=== PATIENT | female | born 1980 | race Caucasian/White ===

== ENCOUNTER 2020-09-27 17:39 | Emergency (ER) | payer SELFPAY ==
--- NOTE | 2020-09-27 17:43 | ECG_ITS ---
Test Reason : SVT Blood Pressure : / mmHG Vent. Rate : 216 BPM Atrial Rate : 215 BPM P-R Int : 000 ms QRS Dur : 068 ms QT Int : 198 ms P-R-T Axes : 000 005 103 degrees QTc Int : [address] depression, consider subendocardial injury Abnormal QRS-T angle, consider primary T wave abnormality Abnormal ECG Supraventricular tachycardia is new Referred By: Ziyad Vera Electronically Signed By:GALEN ANDERSON MD
--- NOTE | 2020-09-27 17:52 | ECG_ITS ---
Test Reason : SVT Blood Pressure : / mmHG Vent. Rate : 128 BPM Atrial Rate : 128 BPM P-R Int : 158 ms QRS Dur : 080 ms QT Int : 304 ms P-R-T Axes : 051 007 033 degrees QTc Int : 443 ms Sinus tachycardia Nonspecific ST abnormality Abnormal ECG Heart rate has decreased Sinus tachycardia has replaced Supraventricular tachycardia Referred By: Ziyad Vera Electronically Signed By:GALEN ANDERSON MD
--- NOTE | 2020-09-27 17:53 | ED.ARRPALP ---
HPI - Arrhythmia/Palpitations General Chief Complaint: Arrhythmia/Palpitations Stated Complaint: Tachycardia Time Seen by Provider: 09/27/20 17:45 Source: patient Mode of arrival: ambulatory Limitations: no limitations History of Present Illness HPI narrative: patient's history of PSVT recurrent episode last episode was in October supposed to be on metoprolol but patient is not taking it today around 04:00 o'clock she noticed heart was beating fast she took 50 mg metoprolol 2 times since then and still continued to have palpitations when she came in the ER heart rate was in 220 range patient was feeling slightly lightheaded and chest tightness complaint: rapid heart beat Onset (ago): hour(s) (2) Duration: constant Severity: severe Context: occurred during rest Arrhythmia history: SVT Associated symptoms: chest pain and near-syncope Treatments prior to arrival: beta-harris Related Data Previous Rx's Medication Instructions Recorded metoprolol tartrate [Lopressor] 50 mg PO BID #60 tab 09/27/20 Allergies Allergy/AdvReac Type Severity Reaction Status Date / Time No Known Allergies Allergy Unverified 08/15/20 16:51 [No Known Allergies*] Review of Systems Review of Systems: REVIEW OF SYSTEMS: Pertinent positives and negatives are stated above in the history. GEN: no fevers, chills, fatigue HEENT: no nasal congestion, sore throat, ear pain NEURO: no headache, dizziness, focal weakness PULM: no cough, shortness of breath CV: no LE edema ABD: no abdominal pain, nausea, vomiting, diarrhea : no dysuria, urgency, frequency SKIN: no rash ROS otherwise negative x 10 PMFSH Past Medical History Medical History SVT (supraventricular tachycardia) Social History Social History Alcohol intake: never Smoking Status: Never smoker Advance Directives: No Advance Directives Information Provided: No Physical Exam Vital Signs: Vital Signs: Vital Signs Temp Pulse Resp BP Pulse Ox 09/27/20 19:44 103 H 156/99 H 09/27/20 18:57 105 H 16 156/99 H 98 09/27/20 17:57 98.3 F 216 H 22 H 146/93 H 97 Body Mass Index 58.1 Appearance: Alert. Oriented X3. No acute distress. Eyes: Pupils equal, round and reactive to light. ENT: Pharynx normal. Neck: Normal inspection. Neck supple. CVS: sinus tachycardia with heart rate to 220. Pulses normal. Respiratory: No respiratory distress. Breath sounds normal. Abdomen: Soft and nontender. Skin: Skin warm and dry. Normal skin color. Normal skin turgor. Extremities: No lower extremity edema. Good range of movement Neuro: Oriented X 3. No motor deficit. No sensory deficit. Course Reevaluation(s) Reevaluation #1: patient with SVT heart rate to 20 beats per minute , no response to Adenocard 6 mg will give her 12 mg now Time: 17:44 Reevaluation #2: Patient still SVT heart rate to 210 range responded to 12 mg of adenosine, surveillance monitor showing sinus tachycardia 120 Time: 17:53 Reevaluation #3: patient feeling better now ambulatory in the ER heart rate 105 will discharge patient home on Lopressor 25 mg twice daily and follow-up with cardiology Time: 19:23 MDM - Arrhythmia/Palpitations Lab Data Result diagrams: 09/27/20 18:07 09/27/20 18:07 Labs: Lab Results 09/27/20 09/27/20 09/27/20 Range/Units 18:07 18:07 18:07 WBC 9.3 (4.8-10.8) X10*3/uL RBC 3.91 L (4.20-5.50) X10*6/uL Hgb 13.2 (12.0-16.0) g/dl Hct 39.9 (37-47) % MCV 102.0 H (80-98) fL MCH 33.8 H (27.0-33.0) pg MCHC 33.1 (31.0-35.0) g/dl RDW 13.3 (11.0-16.0) % Plt Count 192 (160-400) X10*3/uL MPV 9.1 L (9.4-12.3) fL Immature Gran % (Auto) 0.4 (0.0-0.4) % Neut % (Auto) 80.1 H (45-73) % Lymph % (Auto) 12.7 L (20-40) % [place] % (Auto) 5.5 (2-11) % Eos % (Auto) 1.0 (0-4) % Baso % (Auto) 0.3 (0-2) % Lymph # (Auto) 1.2 (1.2-4.9) X10*3/uL [place] # (Auto) 0.5 (0.1-1.2) X10*3/uL Eos # (Auto) 0.1 (0.0-0.4) X10*3/uL Baso # (Auto) 0.0 (0.0-0.2) X10*3/uL Abs Immat Gran (auto) 0.04 H (0.00-0.03) X10*3/uL Absolute Neuts (auto) 7.4 (2.0-8.3) X10*3/uL Absolute Nucleated RBC 0.000 (0.0-0.012) X10*3/uL Nucleated RBC % (auto) 0.0 (0.0-0.2) /100WBC Sodium 138 (135-145) mmol/L Potassium 3.7 (3.3-5.1) mmol/l Chloride 99 (96-108) mmol/L Carbon Dioxide 27 (22-29) mmol/L Anion Gap 16 (12-20) BUN 8 L (9-16) mg/dL Creatinine 0.67 (0.5-1.4) mg/dL Estim Creat Clear Calc 179.5 Estimated GFR > 60 Random Glucose 118 H (60-115) mg/dL Calcium 8.1 L (8.4-10.2) mg/dL Troponin I High Sens 10.0 (<3.5-17.0) ng/L Critical Care Time Critical Care Time Critical Care Time: Yes Total Critical Care Time: 35 Attestation: critical time 35 minutes Discharge Plan Discharge Clinical Impression: Supraventricular tachycardia Patient Disposition: Home, Self-Care Instructions: Supraventricular Tachycardia (ED) Additional Instructions: Start Taking Lopressor 50 mg twice daily and follow up with epidemiology intern. Report to the ER if more episodes of palpitation Prescriptions: New metoprolol tartrate [Lopressor] 50 mg tablet 50 mg PO BID Qty: 60 RF: 1 Referrals: Anoop Alvarez MD [Physician] - 1 week Interventions: ED Discharge Assessment Last Done: 09/27/20 19:51 Discharge Date/Time: 09/27/20 19:51
[2020-09-27 17:57] VITALS: BP 146/93; PULSE 216; RESP 22; TEMP 36.8; O2SAT 97; BMI 58.1
[2020-09-27] MEDS: 0.9 % Sodium Chloride 1,000 ML 999 ML IVCONT (18:03)
[2020-09-27 18:12] LABS: MANUAL DIFF FLAG NO
[2020-09-27 18:14] LABS: Basophils Percent Auto 0.3 % (0-2); Eosinophils Absolute Auto 0.1 X10*3/uL (0.0-0.4); Hematocrit 39.9 % (37-47); Hemoglobin 13.2 g/dl (12.0-16.0); Imm Gran Abs Auto 0.04 X10*3/uL (0.00-0.03); Imm Gran Pct Auto 0.4 % (0.0-0.4); Lymphocytes Absolute Auto 1.2 X10*3/uL (1.2-4.9); Lymphocytes Percent Auto 12.7 % (20-40); Mean Corpuscular HGB Conc 33.1 g/dl (31.0-35.0); Mean Corpuscular Hemoglobin 33.8 pg (27.0-33.0); Mean Platelet Volume 9.1 fL (9.4-12.3); Monocytes Absolute Auto 0.5 X10*3/uL (0.1-1.2); Monocytes Percent Auto 5.5 % (2-11); Neutrophils Absolute Auto 7.4 X10*3/uL (2.0-8.3); Neutrophils Percent Auto 80.1 % (45-73); Platelet Count 192 X10*3/uL (160-400); Red Blood Count 3.91 X10*6/uL (4.20-5.50); Red Cell Distribution Width 13.3 % (11.0-16.0); White Blood Count 9.3 X10*3/uL (4.8-10.8)
[2020-09-27 18:42] LABS: Anion Gap 16 (12-20); Blood Urea Nitrogen 8 mg/dL (9-16); Calcium 8.1 mg/dL (8.4-10.2); Carbon Dioxide 27 mmol/L (22-29); Chloride 99 mmol/L (96-108); Creatinine Clr Calc Pharmacy 179.5; Estimated Glomerular Filt Rate > 60; Glucose Random 118 mg/dL (60-115); Potassium 3.7 mmol/l (3.3-5.1); Sodium 138 mmol/L (135-145)
[2020-09-27 18:57] VITALS: BP 156/99; PULSE 105; RESP 16; O2SAT 98
[2020-09-27 19:14] VITALS: PULSE 106
[2020-09-27 19:44] VITALS: BP 156/99; PULSE 103
[2020-09-27] MEDS: Metoprolol Tartrate 50 MG TABLET PO (19:44)
--- NOTE | 2020-09-27 22:40 | ECG_ITS ---
Test Reason : SVT Blood Pressure : / mmHG Vent. Rate : 187 BPM Atrial Rate : 192 BPM P-R Int : 000 ms QRS Dur : 074 ms QT Int : 244 ms P-R-T Axes : 000 005 081 degrees QTc Int : 430 ms Supraventricular tachycardia Nonspecific ST abnormality Abnormal ECG When compared with ECG of 27-SEP-2020 17:52, Supraventricular tachycardia has replaced Sinus tachycardia Referred By: Ziyad Vera Electronically Signed By:GALEN ANDERSON MD
== END 2020-09-27 19:51 | disposition home or self-care (01) ==
PROVIDERS: Emergency Provider Internal Medicine
DX: I47.1 Supraventricular tachycardia (principal); Z79.899 Other long term (current) drug therapy
CPT/HCPCS: 36415; 80048; 84484; 85025; 93005; 96361; 96374; 99285; 99291; J0153

== ENCOUNTER 2020-09-27 22:39 | Emergency (ER) | payer SELFPAY ==
[2020-09-27 22:50] VITALS: BP 127/100; PULSE 192; RESP 16; TEMP 36.6; O2SAT 95; BMI 58.1
--- NOTE | 2020-09-27 22:52 | ECG_ITS ---
Test Reason : REPEAT Blood Pressure : / mmHG Vent. Rate : 096 BPM Atrial Rate : 096 BPM P-R Int : 146 ms QRS Dur : 084 ms QT Int : 364 ms P-R-T Axes : 053 -01 012 degrees QTc Int : 459 ms Sinus rhythm with Premature atrial complexes Otherwise normal ECG When compared with ECG of 27-SEP-2020 22:56, Sinus rhythm has replaced Atrial fibrillation Referred By: Ziyad Vera Electronically Signed By: GALEN ANDERSON MD MTDD
[2020-09-27 23:03] VITALS: BP 141/78; PULSE 112; PULSE 94; RESP 16; RESP 18; TEMP 36.5; O2SAT 95; O2SAT 96
[2020-09-27 23:33] VITALS: BP 103/59; PULSE 86; RESP 16; TEMP 36.5; O2SAT 94
--- NOTE | 2020-09-27 23:51 | ED.ARRPALP ---
HPI - Arrhythmia/Palpitations General Chief Complaint: Arrhythmia/Palpitations Stated Complaint: SVT Time Seen by Provider: 09/27/20 22:49 Source: patient Mode of arrival: ambulatory Limitations: no limitations History of Present Illness HPI narrative: patient with history of PSVT just seen in the ER and discharged 4 hours ago comes back for episode of tachycardia which lasted for last 1 hour on arrival patient's heart rate was 187. Patient already received 100 mg of metoprolol at home and 50 mg prior to discharge last time she received additional sent 6 mg and 12 mg to break the SVT MD complaint: rapid heart beat Onset (ago): hour(s) (1) Duration: constant Severity: moderate Context: occurred during rest Arrhythmia history: SVT Associated symptoms: other (dizziness) Treatments prior to arrival: beta-harris Related Data Previous Rx's Medication Instructions Recorded metoprolol tartrate [Lopressor] 50 mg PO BID #60 tab 09/27/20 Allergies Allergy/AdvReac Type Severity Reaction Status Date / Time No Known Allergies Allergy Unverified 08/15/20 16:51 [No Known Allergies*] Review of Systems Review of Systems: REVIEW OF SYSTEMS: Pertinent positives and negatives are stated above in the history. GEN: no fevers, chills, fatigue HEENT: no nasal congestion, sore throat, ear pain NEURO: no headache, , focal weakness PULM: no cough, shortness of breath CV: no chest pain, LE edema ABD: no abdominal pain, nausea, vomiting, diarrhea : no dysuria, urgency, frequency SKIN: no rash ROS otherwise negative x 10 PMFSH Past Medical History Medical History SVT (supraventricular tachycardia) Social History Social History Alcohol intake: never Smoking Status: Never smoker Advance Directives: No Advance Directives Information Provided: No Physical Exam Vital Signs: Vital Signs: Vital Signs Temp Pulse Pulse Resp BP Pulse Ox 09/28/20 00:56 108 H 09/27/20 23:56 98.3 F 89 18 112/66 95 09/27/20 23:33 97.7 F 86 16 103/59 L 94 09/27/20 23:03 97.7 F 94 16 141/78 H 96 09/27/20 22:50 97.9 F 192 H 16 127/100 H 95 Body Mass Index 58.1 VITAL SIGNS: Reviewed. GENERAL: Well developed, well nourished, in no acute distress. HEAD: Normocephalic/atraumatic, EYES: PERRLA No pallor/icterus noted EARS: Ext canals without abnormality NOSE: Nares patent bilateral OROPHARYNX: Oral mucosa moist no oral lesions NECK: Supple, no adenopathy LUNGS: Normal breath sounds. No adventitious sounds or accessory muscle use CARDIOVASCULAR: tachycardia with heart rate 187, Regular rate and rhythm without noted murmurs, no JVD or lower extremity edema. ABDOMEN: Soft, non-tender, non-distended with bowel sounds. No rigidity. No guarding. No palpable masses or hernias noted MUSCULOSKELETAL: No tenderness, deformities, EXTREMITIES: No cyanosis or edema. SKIN: no rashes, ulcerations, jaundice, pallor, or petechiae NEUROLOGIC: Alert and oriented x 3. Strength and sensation to light touch were grossly intact Course Reevaluation(s) Reevaluation #1: patient with PSVT came 2nd time to the ER responded to 6+ 12 mg burden was sent EKG showed PACs with heart rate of 108 Time: 22:56 Reevaluation #2: patient feeling much better now heart rate 96 cardiac monitoring showing normal sinus rhythm with PACs patient magnesium 1.5 will give extra magnesium IV also heart rate fluctuating between 95-130 will give p.o. Cardizem to 30 mg advised to follow-up with lock tender chief operator Time: 00:03 MDM - Arrhythmia/Palpitations Differential Diagnosis Differential diagnosis: Likely palpitations, anxiety, sinus tachycardia and supraventricular tachycardia Lab Data Labs: Lab Results 09/28/20 09/28/20 09/28/20 Range/Units 00:06 00:06 00:06 PT 12.2 (10.8-13.0) SEC INR 1.0 (0.9-1.1) APTT 30.2 (24.1-38.0) SEC Magnesium (1.6-2.6) mg/dL Troponin I High Sens 38.4 H D (<3.5-17.0) ng/L TSH 2.60 (0.32-4.0) mIU/mL Coronavirus (PCR) (Negative) 09/28/20 09/28/20 Range/Units 00:06 00:06 PT (10.8-13.0) SEC INR (0.9-1.1) APTT (24.1-38.0) SEC Magnesium 1.5 L (1.6-2.6) mg/dL Troponin I High Sens (<3.5-17.0) ng/L TSH (0.32-4.0) mIU/mL Coronavirus (PCR) NEGATIVE (Negative) ECG Data Attestation: I personally reviewed and interpreted this ECG as follows: Prior ECG tracings: available for review Interpretation: SVT with heart rate [address] T wave changes normal axis normal intervals impression SVT Discharge Plan Discharge Clinical Impression: Supraventricular tachycardia Patient Disposition: Home, Self-Care Additional Instructions: continue metoprolol 50 mg twice daily as prescribed and follow-up with lock tender chief operator Prescriptions: No Action metoprolol tartrate [Lopressor] 50 mg tablet 50 mg PO BID Qty: 60 RF: 1 Referrals: Anoop Alvarez MD [Physician] - 1 week
[2020-09-27 23:56] VITALS: BP 112/66; PULSE 89; RESP 18; TEMP 36.8; O2SAT 95
[2020-09-28 00:35] LABS: Magnesium 1.5 mg/dL (1.6-2.6); Prothrombin Time 12.2 SEC (10.8-13.0)
[2020-09-28 00:37] LABS: Partial Thromboplastin Time 30.2 SEC (24.1-38.0)
[2020-09-28 00:43] LABS: Troponin-I High Sensitivity 38.4 ng/L (<3.5-17.0)
[2020-09-28 00:56] VITALS: PULSE 108
[2020-09-28 01:01] VITALS: PULSE 110
[2020-09-28] MEDS: Magnesium Sulfate/H2O 2 GM/50 ML PIGGYBACK IV (01:15)
[2020-09-28 01:17] VITALS: BP 128/86; PULSE 97
[2020-09-28] MEDS: dilTIAZem HCL 30 MG TABLET PO (01:17)
[2020-09-28 01:18] LABS: SARS COV2 PCR INHOUSE NEGATIVE (Negative)
--- NOTE | 2020-09-28 01:23 | PC.NURSE ---
pt denies any chest pain. no sob, pt is resting in bed. medicated per Jan.
[2020-09-28 02:48] VITALS: BP 93/47; PULSE 103; RESP 18
== END 2020-09-28 02:55 | disposition home or self-care (01) ==
PROVIDERS: Emergency Provider Internal Medicine
DX: I47.1 Supraventricular tachycardia (principal); Z20.828 Contact with and (suspected) exposure to other viral communicable diseases; Z79.899 Other long term (current) drug therapy
CPT/HCPCS: 36415; 83735; 84443; 84484; 85610; 85730; 93005; 96365; 96375; 99284; J0153; J3475; U0003

== ENCOUNTER 2021-09-26 16:12 | Emergency (ER) | payer OTHER, SELFPAY ==
--- NOTE | ~2021-09-26 | CT_ITS ---
EXAMINATION: CT ANGIOGRAM OF THE CHEST WITH AND WITHOUT CONTRAST (CT PULMONARY ANGIOGRAM FOR PE) CLINICAL INFORMATION: Chest pain, elevated d-dimer. Rule out PE. COMPARISON: Chest radiograph done earlier today at 7:20 PM. TECHNIQUE: Prior to contrast administration, noncontrast localization images were obtained. Subsequently, multidetector volumetric imaging was performed from the thoracic inlet to below the diaphragms following the administration of 80 mL Omnipaque 350 intravenous contrast. No contrast reaction reported Sagittal, coronal, and MIP oblique sagittal reformatted images were obtained on the CT workstation, uploaded to PACS, and reviewed. This CT examination was performed using dose optimization techniques as appropriate, variously including the following: *Automated exposure control *Adjustment of mA and/or kV according to patient size (this includes techniques or standardized protocols for targeted exams where dose is matched to indication/reason for exam; i.e. extremities or head) *Use of iterative reconstruction technique Total exam dose-length product 567 mGy-cm FINDINGS: QUALITY OF STUDY/CONTRAST BOLUS: Suboptimal. PULMONARY ARTERIES: Evaluation of segmental and subsegmental pulmonary emboli is somewhat limited due to the timing of the intravenous contrast, motion and attenuation of the beam from patient body habitus. There is no evidence of central pulmonary emboli. THORACIC AORTA: No aneurysm or dissection. LUNG: There are low lung volumes with left greater than right subsegmental atelectases. Prominence of the epicardial fat pad leads to volume loss within the left lung. No focal consolidation or pleural effusion. The airways are patent. PLEURA: No pleural effusion or pneumothorax. MEDIASTINUM: Normal heart size. No pericardial effusion. Mediastinal fat proliferation with a prominent epicardial fat pad. No hilar or mediastinal lymphadenopathy. No evidence of septal bowing or right heart strain. CHEST WALL/AXILLA: Venous collaterals in the abdominal wall of uncertain etiology. No axillary or internal mammary lymphadenopathy. OSSEOUS STRUCTURES: No acute or suspicious osseous abnormality. UPPER ABDOMEN: Hepatic steatosis. No reflux of contrast into the hepatic veins to suggest elevated right heart pressures. CT/CT angio chest PE protocol IMPRESSION: Limited evaluation of segmental and subsegmental pulmonary emboli as above. No central pulmonary emboli nor signs of increased right-sided heart pressure. Low lung volumes with left greater than right subsegmental atelectasis. No focal consolidation, pleural effusion or pneumothorax. Hepatic steatosis. VTE: indeterminate
--- NOTE | ~2021-09-26 | XR_ITS ---
EXAMINATION: XR CHEST CLINICAL INFORMATION: Chest pain COMPARISON: None TECHNIQUE: Frontal view of the chest was obtained. FINDINGS: Cardiac silhouette appears prominent. Blunting of the left costophrenic angle suggests a left-sided pleural effusion. There is good aeration of the right hemithorax. No pneumothorax. XR/XR chest 1V IMPRESSION: Suspected moderate left-sided pleural effusion. This may be further evaluated with PA and lateral radiographs versus chest CT.
[2021-09-26 18:59] VITALS: BP 157/76; PULSE 87; RESP 20; TEMP 36.9; O2SAT 97; BMI 59.7
[2021-09-26 20:09] LABS: MANUAL DIFF FLAG NO
[2021-09-26 20:10] LABS: Basophils Percent Auto 0.5 % (0-2); Eosinophils Absolute Auto 0.1 X10*3/uL (0.0-0.4); Eosinophils Percent Auto 1.5 % (0-4); Hematocrit 40.7 % (37-47); Hemoglobin 13.4 g/dl (12.0-16.0); Imm Gran Abs Auto 0.09 X10*3/uL (0.00-0.03); Lymphocytes Absolute Auto 1.3 X10*3/uL (1.2-4.9); Lymphocytes Percent Auto 14.4 % (20-40); Mean Corpuscular HGB Conc 32.9 g/dl (31.0-35.0); Mean Corpuscular Hemoglobin 36.6 pg (27.0-33.0); Mean Platelet Volume 9.1 fL (9.4-12.3); Monocytes Absolute Auto 0.7 X10*3/uL (0.1-1.2); Monocytes Percent Auto 7.3 % (2-11); Neutrophils Absolute Auto 6.7 X10*3/uL (2.0-8.3); Neutrophils Percent Auto 75.3 % (45-73); Platelet Count 217 X10*3/uL (160-400); Red Blood Count 3.66 X10*6/uL (4.20-5.50); Red Cell Distribution Width 15.9 % (11.0-16.0); White Blood Count 8.9 X10*3/uL (4.8-10.8)
[2021-09-26 20:12] LABS: Mean Corpuscular Volume 111.2 fL (80-98)
--- NOTE | 2021-09-26 20:15 | ED.CHESTPAIN ---
HPI - Chest Pain General Chief Complaint: Chest Pain Stated Complaint: LOW O2 Time Seen by Provider: 09/26/21 20:15 Source: patient Mode of arrival: ambulatory Limitations: no limitations History of Present Illness HPI narrative: 41 years old female otherwise healthy came in for evaluation of left-sided chest pain. Patient was seen and evaluated at an urgent care and was advised to come to the hospital for further evaluation of left-sided chest pain, pain started about a week ago, pain is localized to the left side of chest in the mid axillary line, no radiation, pain intermittent, described as moderate 5/10, pain is triggered by movement or taking it deep breath, staying still were relieved the pain, no other associated symptoms. Patient had bronchitis a week before with a deep coughing. Related Data Previous Rx's Medication Instructions Recorded metoprolol tartrate 50 mg tablet 50 mg PO BID #60 tab 09/27/20 (Lopressor) Allergies Allergy/AdvReac Type Severity Reaction Status Date / Time No Known Allergies Allergy Unverified 08/15/20 16:51 [No Known Allergies*] Review of Systems Review of Systems: All other systems are reviewed and are negative Constitutional: Reports as per HPI and Reports no additional constitutional complaints Eyes: Reports as per HPI and Reports no additional eye complaints Reports system reviewed and no additional complaints, except as documented Cardiovascular: Reports as per HPI and Reports no additional cardiovascular complaints Respiratory: Reports as per HPI and Reports no additional respiratory complaints Gastrointestinal: Reports as per HPI and Reports no additional gastrointestinal complaints Genitourinary: Reports no additional female genitourinary complaints Musculoskeletal: Reports no additional musculoskeletal complaints Skin/Breast: Reports system reviewed and no additional complaints, except as docu Psychiatric: Reports no additional psychiatric complaints Endocrine: Reports no additional endocrine complaints Hematologic/Lymphatic: Reports no additional hematologic/lymphatic complaints Allergic/Immunologic: Reports no additional allergic/immunologic complaints Reports system reviewed and no additional complaints, except as documented and Reports Abnormal speech present COUNTS INCLUDE 234 BEDS AT THE [facility] Past Medical History Medical History SVT (supraventricular tachycardia) Social History Social History Alcohol intake: never Advance Directives: No Physical Exam Vital Signs: Vital Signs: Last Vital Signs Temp 98.4 F 09/26/21 23:49 Pulse 68 09/26/21 23:49 Resp 16 09/26/21 23:49 BP 123/90 H 09/26/21 23:49 Pulse Ox 100 09/26/21 23:49 Body Mass Index 59.7 Vital signs have been reviewed as appeared to be correct. Blood pressure normal. Heart rate normal. Respiration rate normal. Temperature normal. Oxygen saturation normal. Appearance: Alert. Oriented X3. No acute distress. Head: Normal external exam. Normocephalic. Atraumatic. No Rasmussen signs noted. No raccoon eyes noted Eyes: PERRLA. EOMI. Conjunctiva and sclera normal. Eyelids normal. ENT: TM's Normal. Pharynx normal. Uvula midline. Moist mucous membranes. No trismus noted. No drooling noted. No muffled voice noted. Neck: Normal inspection. Neck supple. FROM. No adenopathy. Thyroid Normal. No meningeal signs. No neck mass noted. CVS: Normal heart rate and rhythm. Heart sound normal. No murmurs noted. Pulses normal throughout. Respiratory: No respiratory distress. Painless inspiration. Breath sounds normal. No wheezes/rales/rhonchi noted. Chest reproducible tenderness in the mid chest at mid axillary line. No accessory muscle usage noted or decreased air movement noted. Abdomen: Soft and nontender. Bowel sounds normal in all 4 quadrants. No distention noted. No organomegaly noted. No visible injury noted. Back: No CVA tenderness. Full range of motion noted. Skin: Skin warm and dry. Normal skin color. Normal skin turgor. No rashes/lesions/lacerations noted. Extremities: No lower extremity edema. Extremities exhibit normal range of motion. Extremities nontender. Neuro: Oriented X 3. Cranial nerve exam: II-XII are grossly intact No motor deficit. No sensory deficit. Reflexes normal. Course Course Course Narrative: Assessment and plan. 41-year-old female came in for evaluation of left side chest pain, patient was sent from walk-in urgent care for being hypoxic, patient declined any recent travel, or prolonged immobilization, no lower extremity swelling or tenderness. Patient found to be at low O2 in the ED, patient with 2 L of oxygen go up to 96- 97%, patient is comfortably breathing, CTs/chest x-ray labs are unremarkable to explain patient's symptoms, patient was offered to be admitted for monitoring overnight, patient declined and has to go home patient will follow-up with her PCP. MDM - Chest Pain Medical Records Data Attestation: I reviewed the patient's medical records. Lab Data Attestation: I reviewed the patient's lab results. Result diagrams: 09/26/21 20:05 09/26/21 20:05 Labs: Lab Results 09/26/21 09/26/21 09/26/21 Range/Units 20:05 20:05 20:27 WBC 8.9 (4.8-10.8) X10*3/uL RBC 3.66 L (4.20-5.50) X10*6/uL Hgb 13.4 (12.0-16.0) g/dl Hct 40.7 (37-47) % MCV 111.2 H (80-98) fL MCH 36.6 H (27.0-33.0) pg MCHC 32.9 (31.0-35.0) g/dl RDW 15.9 (11.0-16.0) % Plt Count 217 (160-400) X10*3/uL MPV 9.1 L (9.4-12.3) fL Immature Gran % (Auto) 1.0 H (0.0-0.4) % Neut % (Auto) 75.3 H (45-73) % Lymph % (Auto) 14.4 L (20-40) % [place] % (Auto) 7.3 (2-11) % Eos % (Auto) 1.5 (0-4) % Baso % (Auto) 0.5 (0-2) % Lymph # (Auto) 1.3 (1.2-4.9) X10*3/uL [place] # (Auto) 0.7 (0.1-1.2) X10*3/uL Eos # (Auto) 0.1 (0.0-0.4) X10*3/uL Baso # (Auto) 0.0 (0.0-0.2) X10*3/uL Abs Immat Gran (auto) 0.09 H (0.00-0.03) X10*3/uL Absolute Neuts (auto) 6.7 (2.0-8.3) X10*3/uL Absolute Nucleated RBC 0.000 (0.0-0.012) X10*3/uL Nucleated RBC % (auto) 0.0 (0.0-0.2) /100WBC D-Dimer NG/ML Sodium 141 (135-145) mmol/L Potassium 3.9 (3.3-5.1) mmol/L Chloride 97 (96-108) mmol/L Carbon Dioxide 30 H (22-29) mmol/L Anion Gap 18 (12-20) BUN 4 L (9-16) mg/dL Creatinine 0.63 (0.5-1.4) mg/dL Estim Creat Clear Calc 192.4 Estimated GFR > 60 Random Glucose 111 (60-115) mg/dL Calcium 9.0 D (8.4-10.2) mg/dL Total Bilirubin 2.3 H (0.0-1.0) mg/dL Direct Bilirubin 1.1 H (0.0-0.5) mg/dL AST 51 H (5-31) U/L ALT 41 H (0-31) U/L Alkaline Phosphatase 86 (39-117) U/L Troponin I High Sens 13.9 (<3.5-17.0) ng/L Total Protein 6.0 L (6.5-8.0) g/dL Albumin 3.6 (3.5-5.0) g/dL Lipase 20 (8-78) U/L COVID-19 (CARLITA) (Negative) COVID-19 Clin Com 09/26/21 09/26/21 Range/Units 21:24 22:02 WBC (4.8-10.8) X10*3/uL RBC (4.20-5.50) X10*6/uL Hgb (12.0-16.0) g/dl Hct (37-47) % MCV (80-98) fL MCH (27.0-33.0) pg MCHC (31.0-35.0) g/dl RDW (11.0-16.0) % Plt Count (160-400) X10*3/uL MPV (9.4-12.3) fL Immature Gran % (Auto) (0.0-0.4) % Neut % (Auto) (45-73) % Lymph % (Auto) (20-40) % [place] % (Auto) (2-11) % Eos % (Auto) (0-4) % Baso % (Auto) (0-2) % Lymph # (Auto) (1.2-4.9) X10*3/uL [place] # (Auto) (0.1-1.2) X10*3/uL Eos # (Auto) (0.0-0.4) X10*3/uL Baso # (Auto) (0.0-0.2) X10*3/uL Abs Immat Gran (auto) (0.00-0.03) X10*3/uL Absolute Neuts (auto) (2.0-8.3) X10*3/uL Absolute Nucleated RBC (0.0-0.012) X10*3/uL Nucleated RBC % (auto) (0.0-0.2) /100WBC D-Dimer 492 NG/ML Sodium (135-145) mmol/L Potassium (3.3-5.1) mmol/L Chloride (96-108) mmol/L Carbon Dioxide (22-29) mmol/L Anion Gap (12-20) BUN (9-16) mg/dL Creatinine (0.5-1.4) mg/dL Estim Creat Clear Calc Estimated GFR Random Glucose (60-115) mg/dL Calcium (8.4-10.2) mg/dL Total Bilirubin (0.0-1.0) mg/dL Direct Bilirubin (0.0-0.5) mg/dL AST (5-31) U/L ALT (0-31) U/L Alkaline Phosphatase (39-117) U/L Troponin I High Sens (<3.5-17.0) ng/L Total Protein (6.5-8.0) g/dL Albumin (3.5-5.0) g/dL Lipase (8-78) U/L COVID-19 (CARLITA) Negative (Negative) COVID-19 Clin Com See Note Discharge Plan Discharge Clinical Impression: Chest pain, Hypoxia Patient Disposition: Home, Self-Care Instructions: Hypoxia (ED) Prescriptions: No Action metoprolol tartrate [Lopressor] 50 mg tablet 50 mg PO BID Qty: 60 RF: 1 Referrals: Physician,Unknown J [Primary Care Provider] - 2 days Leonid Burgos MD [Physician] - 2 days
[2021-09-26 20:31] LABS: Alanine Aminotransferase 41 U/L (0-31); Albumin Level 3.6 g/dL (3.5-5.0); Alkaline Phosphatase 86 U/L (39-117); Anion Gap 18 (12-20); Aspartate Amino Transferase 51 U/L (5-31); Bilirubin Direct 1.1 mg/dL (0.0-0.5); Bilirubin Total 2.3 mg/dL (0.0-1.0); Blood Urea Nitrogen 4 mg/dL (9-16); Carbon Dioxide 30 mmol/L (22-29); Chloride 97 mmol/L (96-108); Creatinine Clr Calc Pharmacy 192.4; Estimated Glomerular Filt Rate > 60; Glucose Random 111 mg/dL (60-115); Lipase 20 U/L (8-78); Potassium 3.9 mmol/L (3.3-5.1); Sodium 141 mmol/L (135-145)
[2021-09-26 20:42] VITALS: BP 142/80; PULSE 93; RESP 20; O2SAT 88
[2021-09-26 20:45] VITALS: O2SAT 97
[2021-09-26 20:53] LABS: Troponin-I High Sensitivity 13.9 ng/L (<3.5-17.0)
[2021-09-26 21:44] LABS: COVID-19 Test Negative (Negative)
[2021-09-26 21:54] VITALS: BP 144/86; PULSE 93; RESP 16; TEMP 36.3; O2SAT 89
[2021-09-26 22:23] LABS: D Dimer 492 NG/ML
[2021-09-26] MEDS: iohexoL 350 MG/ML 100 ML INFUS..BTL 85 ML IV (23:22)
[2021-09-26 23:49] VITALS: BP 123/90; PULSE 68; RESP 16; TEMP 36.9; O2SAT 100
[2021-09-27 00:15] VITALS: BP 144/82; PULSE 74; RESP 16; TEMP 37; O2SAT 90
== END 2021-09-27 00:29 | disposition home or self-care (01) ==
PROVIDERS: Emergency Provider Emergency Medicine
DX: R07.9 Chest pain, unspecified (principal); R09.02 Hypoxemia; Z20.822 Contact with and (suspected) exposure to COVID-19
CPT/HCPCS: 36415; 71045; 71275; 80053; 82248; 83690; 84484; 85025; 85379; 87635; 99283; 99284; Q9967

== ENCOUNTER 2023-09-14 22:07 | Emergency (ER) | payer OTHER, SELFPAY ==
--- NOTE | 2023-09-14 | ECG_ITS ---
Test Reason : TACHYCARDIA Blood Pressure : / mmHG Vent. Rate : 188 BPM Atrial Rate : 000 BPM P-R Int : 000 ms QRS Dur : 070 ms QT Int : 240 ms P-R-T Axes : 000 022 042 degrees QTc Int : 424 ms Supraventricular tachycardia Nonspecific ST abnormality Abnormal ECG When compared with ECG of 27-SEP-2020 23:53, Premature atrial complexes are no longer Present Vent. rate has increased BY 92 BPM Referred By: Generic ED Physician Electronically Signed By:GALEN ANDERSON MD
[2023-09-14 22:20] VITALS: BP 136/75; PULSE 188; RESP 16; O2SAT 97; BMI 48.3
[2023-09-14] MEDS: Adenosine 6 MG/2 ML VIAL IVPUSH (22:21)
--- NOTE | 2023-09-14 22:21 | ED_ITS ---
HPI - Arrhythmia/Palpitations General Chief Complaint: Arrhythmia/Palpitations Stated Complaint: Tachycardia Time Seen by Provider: 09/14/23 22:20 Source: patient Mode of arrival: ambulatory Limitations: no limitations History of Present Illness HPI narrative: Patient with history of SVT last episode was about 1 year ago comes here for palpitation was last 2 hours heart rate went to 200 at home in ED was 188 patient started feeling weak and dizzy no chest pain or shortness of breath Related Data Previous Rx's Medication Instructions Recorded metoprolol tartrate 50 mg tablet 50 mg PO BID #60 tabs 09/27/20 (Lopressor) metoprolol tartrate 50 mg tablet 50 mg PO BID #180 tabs 09/15/23 Allergies Allergy/AdvReac Type Severity Reaction Status Date / Time No Known Allergies Allergy Verified 09/14/23 22:44 [No Known Allergies*] Review of Systems 2 Review of Systems: Yes all other systems are reviewed and are negative PMFSH Past Medical History Medical History SVT (supraventricular tachycardia) Social History Social History Alcohol intake: never Advance Directives: No Advance Directives Information Provided: No Physical Exam 2 Vital Signs: Vital Signs: Last Vital Signs Temp 98.6 F 09/15/23 00:16 Pulse 83 09/15/23 00:16 Resp 16 09/15/23 00:16 BP 125/80 09/15/23 00:16 Pulse Ox 98 09/15/23 00:16 O2 Del Method Room Air 09/15/23 00:16 BMI result Body Mass Index 48.3 Appearance: Alert. Oriented X3. No acute distress. Eyes: PERRLA, No Nystagmus ENT: Pharynx normal. Oral Mucosa moist Neck: Normal inspection. Neck supple. CVS: Tachycardic regular rate and rhythm no murmur rub or gallop Pulses normal. Respiratory: No respiratory distress. Equal air entry bilateral, no wheezing/rales/rhonchi Abdomen: Soft and nontender. Bowel sounds are present, no mass palpable, no CVA tenderness Skin: Skin warm and dry. Normal skin color. Normal skin turgor. Extremities: No lower extremity edema. No calf tenderness Neuro: Oriented X 3. No motor deficit. Medications Administered Discontinued Medications Generic Name Dose Route Start Last Admin Trade Name Lisa PRN Reason Stop Dose Admin Adenosine 6 mg 09/14/23 22:21 09/14/23 22:21 Adenosine 6 Mg/2 Ml Vial IVPUSH 09/14/23 22:22 6 mg STAT STA Administration Adenosine 12 mg 09/14/23 22:25 09/14/23 22:26 Adenosine 6 Mg/2 Ml Vial IVPUSH 09/14/23 22:26 12 mg STAT STA Administration Medical Decision Making Medical Decision Making [facility] Narrative: Patient's SVT responded to adenocard 6 mg plus Adenocard 12 mg converted to sinus rhythm at time of discharge discharge patient home Differential Diagnosis Differential Diagnoses: The differential diagnosis associated with the presentation includes SVT/AFib/atrial flutter Lab Data [facility] Lab Attestation statement: I reviewed the patient's lab results. 09/14/23 22:27 09/14/23 22:27 Labs: Lab Results 09/14/23 Range/Units 22:27 WBC 17.1 H (4.8-10.8) X10*3/uL RBC 4.57 (4.20-5.50) X10*6/uL Hgb 15.1 (12.0-16.0) g/dl Hct 44.9 (37.0-47.0) % MCV 98.2 H (80.0-98.0) fL MCH 33.0 (27.0-33.0) pg MCHC 33.6 (31.0-35.0) g/dl RDW 13.8 (11.0-16.0) % Plt Count 255 (160-400) X10*3/uL MPV 9.1 L (9.4-12.3) fL Immature Gran % (Auto) 0.6 H (0.0-0.4) % Neut % (Auto) 75.9 H (45-73) % Lymph % (Auto) 16.8 L (20-40) % [place] % (Auto) 5.2 (2-11) % Eos % (Auto) 1.0 (0-4) % Baso % (Auto) 0.5 (0-2) % Lymph # (Auto) 2.9 (1.2-4.9) X10*3/uL [place] # (Auto) 0.9 (0.1-1.2) X10*3/uL Eos # (Auto) 0.2 (0.0-0.4) X10*3/uL Baso # (Auto) 0.1 (0.0-0.2) X10*3/uL Abs Immat Gran (auto) 0.10 H (0.00-0.03) X10*3/uL Absolute Neuts (auto) 13.0 H (2.0-8.3) x10*3/uL Absolute Nucleated RBC 0.000 (0.0-0.012) X10*3/uL Nucleated RBC % (auto) 0.0 (0.0-0.2) /100WBC Sodium 139 (135-145) mmol/L Potassium 4.2 (3.3-5.1) mmol/L Chloride 98 (96-108) mmol/L Carbon Dioxide 27 (22-29) mmol/L Anion Gap 18 (12-20) BUN 11 (9-16) mg/dL Creatinine 0.73 (0.5-1.4) mg/dL Estim Creat Clear Calc 137.5 Estimated GFR > 60 Random Glucose 144 H (60-115) mg/dL Calcium 9.7 D (8.4-10.2) mg/dL Magnesium 1.6 (1.6-2.6) mg/dL Total Bilirubin 1.3 H (0.0-1.0) mg/dL AST 62 H (5-31) U/L ALT 44 H (0-31) U/L Alkaline Phosphatase 139 H (39-117) U/L Troponin I High Sens 4.1 (<3.5-17.0) ng/L Total Protein 7.3 (6.5-8.0) g/dL Albumin 4.3 (3.5-5.0) g/dL Discharge Plan Discharge Clinical Impression: Supraventricular tachycardia Patient Disposition: Home, Self-Care Instructions: Supraventricular Tachycardia (ED) Additional Instructions: Continue taking metoprolol and follow up with glass cleaner Prescriptions: New metoprolol tartrate 50 mg tablet 50 mg PO BID Qty: 180 2RF No Action metoprolol tartrate [Lopressor] 50 mg tablet 50 mg PO BID Qty: 60 1RF Interventions: ED Discharge Assessment Last Done: 09/15/23 00:46 Discharge Date/Time: 09/15/23 00:46
[2023-09-14] MEDS: Adenosine 6 MG/2 ML VIAL 12 MG IVPUSH (22:26)
[2023-09-14 22:31] LABS: MANUAL DIFF FLAG NO
[2023-09-14 22:35] VITALS: BP 136/75; PULSE 91; RESP 23; TEMP 37.1; O2SAT 96
--- NOTE | 2023-09-14 22:36 | PC.NURSE ---
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 hr remained unchanged. per dr pacheco order pt given additional 12mg ivp adenosine @ 2226. HR broke to 101 at 2227
[2023-09-14 22:42] LABS: Basophils Absolute Auto 0.1 X10*3/uL (0.0-0.2); Basophils Percent Auto 0.5 % (0-2); Eosinophils Absolute Auto 0.2 X10*3/uL (0.0-0.4); Hematocrit 44.9 % (37.0-47.0); Hemoglobin 15.1 g/dl (12.0-16.0); Imm Gran Pct Auto 0.6 % (0.0-0.4); Lymphocytes Absolute Auto 2.9 X10*3/uL (1.2-4.9); Lymphocytes Percent Auto 16.8 % (20-40); Mean Corpuscular HGB Conc 33.6 g/dl (31.0-35.0); Mean Corpuscular Volume 98.2 fL (80.0-98.0); Mean Platelet Volume 9.1 fL (9.4-12.3); Monocytes Absolute Auto 0.9 X10*3/uL (0.1-1.2); Monocytes Percent Auto 5.2 % (2-11); Neutrophils Percent Auto 75.9 % (45-73); Platelet Count 255 X10*3/uL (160-400); Red Blood Count 4.57 X10*6/uL (4.20-5.50); Red Cell Distribution Width 13.8 % (11.0-16.0); White Blood Count 17.1 X10*3/uL (4.8-10.8)
[2023-09-14 22:49] LABS: Alanine Aminotransferase 44 U/L (0-31); Albumin Level 4.3 g/dL (3.5-5.0); Alkaline Phosphatase 139 U/L (39-117); Anion Gap 18 (12-20); Aspartate Amino Transferase 62 U/L (5-31); Bilirubin Total 1.3 mg/dL (0.0-1.0); Blood Urea Nitrogen 11 mg/dL (9-16); Calcium 9.7 mg/dL (8.4-10.2); Carbon Dioxide 27 mmol/L (22-29); Chloride 98 mmol/L (96-108); Creatinine Clr Calc Pharmacy 137.5; Estimated Glomerular Filt Rate > 60; Glucose Random 144 mg/dL (60-115); Magnesium 1.6 mg/dL (1.6-2.6); Potassium 4.2 mmol/L (3.3-5.1); Sodium 139 mmol/L (135-145); Total Protein 7.3 g/dL (6.5-8.0)
[2023-09-14 22:57] LABS: Troponin-I High Sensitivity 4.1 ng/L (<3.5-17.0)
[2023-09-15 00:16] VITALS: BP 125/80; PULSE 83; RESP 16; TEMP 37; O2SAT 98
== END 2023-09-15 00:46 | disposition home or self-care (01) ==
PROVIDERS: Emergency Provider Internal Medicine; PCP Physician Assistant
DX: I47.10 Supraventricular tachycardia, unspecified (principal)
CPT/HCPCS: 36415; 80053; 83735; 84484; 85025; 93005; 96374; 99284; J0153

== ENCOUNTER 2024-02-03 06:57 | Inpatient (IN) | payer OTHER, SELFPAY ==
[2024-02-03] VITALS (10 sets, daily range): BP systolic 113–159; BP diastolic 60–107; PULSE 83–126; RESP 14–21; TEMP 36.7–37.1; O2SAT 92–97; BMI 54.3
--- NOTE | ~2024-02-03 | XR_ITS ---
EXAMINATION: XR CHEST CLINICAL INFORMATION: Elevated BNP, atrial fibrillation with RVR. COMPARISON: Chest radiograph dated 09/26/2021. CTA chest dated 09/26/2021. TECHNIQUE: 1 view of the chest was obtained. FINDINGS: The trachea is in normal anatomic position. Heart size appears somewhat enlarged, similar to the prior chest radiograph. There is blunting of the left costophrenic angle, similar in appearance to that seen on chest radiograph dated 09/26/2021. Correlation with chest CT performed the same day, 09/26/2021 demonstrates that this is secondary to a large epicardial fat pad. The right lung is clear. There is no pneumothorax. There is no large pleural effusion. There is no acute osseous abnormality. XR/XR chest 1V IMPRESSION: No acute cardiopulmonary disease. Stable, mild cardiomegaly. The left hemithorax is unchanged in appearance and is secondary to an enlarged epicardial fat pad.
--- NOTE | 2024-02-03 07:01 | ECG_ITS ---
Test Reason : PALPITATIONS Blood Pressure : / mmHG Vent. Rate : 125 BPM Atrial Rate : 264 BPM P-R Int : 000 ms QRS Dur : 078 ms QT Int : 316 ms P-R-T Axes : 251 -04 012 degrees QTc Int : 456 ms Atrial flutter with variable A-V block Possible Anterior infarct (cited on or before 03-FEB-2024) Abnormal ECG When compared with ECG of 14-SEP-2023 22:13, Atrial flutter has replaced Sinus rhythm Vent. rate has decreased BY [address] now depressed in Inferior leads Referred By: Generic ED Physician Electronically Signed By:Anopo Alvarez
--- NOTE | 2024-02-03 07:32 | ED_ITS ---
HPI - General Adult General Chief complaint: Arrhythmia/Palpitations Stated complaint: rapid heart beat Time Seen by Provider: 02/03/24 07:22 History of Present Illness HPI narrative: The patient is a 43-year-old female with a history of alcoholism. She also has a history of supraventricular tachycardia. She has been prescribed metoprolol tartrate 50 mg b.i.d. in the past. The patient wears an Apple watch to monitor her heart rate. She says that because of her history of SVT she has been very vigilant about heart rate irregularities. Over the last month her Apple watch has intermittently been telling her that she is in atrial fibrillation. She says that yesterday evening her watch started telling her that she was in atrial fibrillation and she has continued to have her watch tell this throughout the night and this morning. She took a dose of 50 morning at 06:30. She was worried that for atrial fibrillation was going on for more than 12 hours and brought herself to the emergency room this morning. She has never specifically come to the emergency room for atrial fibrillation before. 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 She continues to use alcohol. She last drank last evening. No chest pain, no fever, sweats, chills. Related Data Home Medications Medication Instructions Recorded Confirmed magnesium oxide 400 mg PO DAILY 02/03/24 02/03/24 Previous Rx's Medication Instructions Recorded metoprolol tartrate 50 mg tablet 50 mg PO BID #60 tabs 09/27/20 (Lopressor) Allergies Allergy/AdvReac Type Severity Reaction Status Date / Time No Known Allergies Allergy Verified 09/14/23 22:44 [No Known Allergies*] Review of Systems 2 Review of Systems: Yes all other systems are reviewed and are negative [facility] Past Medical History Medical History SVT (supraventricular tachycardia) Social History Social History Alcohol intake: current Alcohol intake frequency: 3 or more drinks per day Alcohol type: hard liquor Patient Tobacco Use Status: Former Tobacco user Smoked in Last 30 Days: No Use of substances other than those prescribed or required for medical reasons: No Advance Directives: No Nutrition Risks: No Nutritional Risk Patient : No Physical Exam ED Vital Signs: Vital Signs - 24 hr 02/03/24 07:07 02/03/24 07:50 02/03/24 08:15 Temperature 98.7 F Pulse Rate 126 H 111 H 108 H Respiratory Rate 20 17 20 Blood Pressure 136/90 H 159/99 H 113/66 Pulse Oximetry 95 Oxygen Delivery Method Room Air 02/03/24 09:14 02/03/24 10:12 02/03/24 10:18 Temperature Pulse Rate 114 H 116 H 108 H Respiratory Rate 16 16 16 Blood Pressure 114/72 119/75 121/73 Pulse Oximetry 92 95 Oxygen Delivery Method Room Air Room Air 02/03/24 11:05 02/03/24 12:21 Temperature Pulse Rate 111 H 109 H Respiratory Rate 20 21 H Blood Pressure 123/73 113/60 Pulse Oximetry 93 93 Oxygen Delivery Method Room Air Room Air BMI result Body Mass Index 54.3 Const Other: The patient is a 43-year-old woman with a BMI of 54 who looks chronically ill. She does not appear obviously in distress however. She does not seem short of breath or in discomfort. HENMT Other: The patient's face is flushed. Mucous membranes are moist. Eyes Other: Pupils are round equal, conjunctivae clear, extraocular movements intact Neck Other: The patient's neck is full. No JVD apparent. Resp Effort & Inspection: normal respiratory effort Auscultation: clear to auscultation bilaterally Cardio Other: The patient has an irregularly irregular rhythm. The patient's heart rate is tachycardic. No definite murmur. GI Other: Abdomen is soft and nontender. Skin Other: The patient has some chronic erythema to the face. The skin is otherwise unremarkable. Neuro Other: The patient is awake, alert, pleasant, cooperative. Grossly neurologically intact. Extrem Other: The patient's lower legs are thick but not tender or asymmetrical. No pitting edema. Medications Administered Generic Name Dose Route Start Last Admin Trade Name Freq PRN Reason Stop Dose Admin Enoxaparin Sodium 40 mg 02/03/24 12:45 02/03/24 13:52 Enoxaparin Sodium 40 Mg/0.4 Ml Syringe SUBCUT 40 mg Q24H ADOLPH Administration Famotidine 20 mg 02/03/24 12:40 02/03/24 13:51 Famotidine 20 Mg Tablet PO 20 mg BID ADOLPH Administration Folic Acid 1 mg 02/03/24 12:35 02/03/24 13:51 Folic Acid 1 Mg Tablet PO 02/06/24 12:34 1 mg DAILY ADOLPH Administration Metoprolol Tartrate 25 mg 02/03/24 13:00 02/03/24 13:51 Metoprolol Tartrate 25 Mg Tablet PO 25 mg QID ADOLPH Administration Protocol Sodium Chloride 3 ml 02/03/24 16:00 02/03/24 16:17 0.9 % Sodium Chloride Flush 3 Ml Syringe IVFLUSH 3 ml QSHIFT ADOLPH Administration Thiamine HCl 100 mg 02/03/24 12:35 02/03/24 13:51 Thiamine Hcl 100 Mg Tablet PO 02/06/24 12:34 100 mg DAILY ADOLPH Administration Discontinued Medications Generic Name Dose Route Start Last Admin Trade Name Freq PRN Reason Stop Dose Admin Diltiazem HCl 20 mg 02/03/24 10:14 02/03/24 11:05 Diltiazem Hcl 50 Mg/10 Ml Vial IVPUSH 02/03/24 10:15 20 mg STAT STA Administration Metoprolol Tartrate 5 mg/ 55 mls @ 230 mls/hr 02/03/24 07:31 02/03/24 08:17 Sodium Chloride IV 02/03/24 07:45 Infused ONCE ONE Infusion Magnesium Sulfate 2 gm in 50 mls @ 150 mls/hr 02/03/24 08:27 02/03/24 10:58 Magnesium Sulfate/H2o IV 02/03/24 08:46 Infused ONCE ONE Infusion Sodium Chloride 1,000 mls @ 999 mls/hr 02/03/24 09:30 02/03/24 10:13 Ns IV 02/03/24 10:30 Infused .Q1H1M ADOLPH Infusion Metoprolol Tartrate 50 mg 02/03/24 08:01 02/03/24 08:16 Metoprolol Tartrate 50 Mg Tablet PO 02/03/24 08:02 50 mg ONCE ONE Administration Protocol Metoprolol Tartrate 5 mg 02/03/24 08:46 02/03/24 09:17 Metoprolol Tartrate 5 Mg/5 Ml Vial IVPUSH 02/03/24 08:47 5 mg ONCE ONE Administration Phenobarbital Sodium 180 mg 02/03/24 14:00 02/03/24 13:52 Phenobarbital Sodium 130 Mg/Ml Im Once IM 02/03/24 14:01 180 mg ONCE ONE Administration Protocol Medical Decision Making Medical Decision Making [facility] Narrative: The patient is a 43-year-old woman with a history of significant alcoholism. She is also morbidly obese. She presents in atrial fibrillation/flutter with a rapid ventricular response. She has likely been having atrial fibrillation/flutter intermittently during the last month according to her apple watch. She continues to drink. Her alcohol level today is 187. She had taken 50 mg of metoprolol tartrate prior to arrival. The patient was in atrial flutter with rapid ventricular response but was tolerating it well from a hemodynamic point of view. She was given additional oral metoprolol as well as IV metoprolol and ultimately IV diltiazem. Her heart rate came down to about 110 but never lower and she did not convert to a sinus rhythm. Given her comorbidities of significant alcoholism and morbid obesity I consulted Cardiology. We agreed that management of this case of atrial flutter as an outpatient would likely be problematic given her alcohol. Ultimately the patient was amenable to being hospitalized for control of her tachycardia and for management of what I expect will likely be significant alcohol withdrawal. Lab Data 02/03/24 07:42 02/03/24 07:42 Labs: Lab Results 02/03/24 Range/Units 07:42 WBC 6.2 (4.8-10.8) X10*3/uL RBC 3.88 L (4.20-5.50) X10*6/uL Hgb 13.4 (12.0-16.0) g/dl Hct 39.2 (37.0-47.0) % MCV 101.0 H (80.0-98.0) fL MCH 34.5 H (27.0-33.0) pg MCHC 34.2 (31.0-35.0) g/dl RDW 14.0 (11.0-16.0) % Plt Count 148 L D (160-400) X10*3/uL MPV 8.9 L (9.4-12.3) fL Immature Gran % (Auto) 1.1 H (0.0-0.4) % Neut % (Auto) 56.7 (45-73) % Lymph % (Auto) 31.5 (20-40) % [place] % (Auto) 6.8 (2-11) % Eos % (Auto) 3.1 (0-4) % Baso % (Auto) 0.8 (0-2) % Lymph # (Auto) 2.0 (1.2-4.9) X10*3/uL [place] # (Auto) 0.4 (0.1-1.2) X10*3/uL Eos # (Auto) 0.2 (0.0-0.4) X10*3/uL Baso # (Auto) 0.1 (0.0-0.2) X10*3/uL Abs Immat Gran (auto) 0.07 H (0.00-0.03) X10*3/uL Absolute Neuts (auto) 3.5 (2.0-8.3) x10*3/uL Absolute Nucleated RBC 0.000 (0.0-0.012) X10*3/uL Nucleated RBC % (auto) 0.0 (0.0-0.2) /100WBC PT 11.5 (11.1-13.3) SEC INR 0.9 (0.9-1.1) Sodium 143 (135-145) mmol/L Potassium 3.3 (3.3-5.1) mmol/L Chloride 103 (96-108) mmol/L Carbon Dioxide 25 (22-29) mmol/L Anion Gap 18 (12-20) BUN 10 (9-16) mg/dL Creatinine 0.65 (0.5-1.4) mg/dL Estim Creat Clear Calc 166.3 Estimated GFR > 60 Random Glucose 127 H (60-115) mg/dL Calcium 9.1 D (8.4-10.2) mg/dL Magnesium 1.4 L* (1.6-2.6) mg/dL Total Bilirubin 0.7 (0.0-1.0) mg/dL Direct Bilirubin 0.3 (0.0-0.5) mg/dL AST 97 H (5-31) U/L ALT 70 H (0-31) U/L Alkaline Phosphatase 124 H (39-117) U/L Troponin I High Sens 6.6 D (<3.5-17.0) ng/L B-Natriuretic Peptide 220 H (<100) pg/mL Total Protein 6.4 L (6.5-8.0) g/dL Albumin 3.5 (3.5-5.0) g/dL TSH 4.21 H (0.32-4.0) uIU/mL Beta HCG, Quant < 2 mIU/mL Ethyl Alcohol 187 mg/dL Independent Interpretation I performed an independent interpretation of an: EKG Interpretation: This atrial flutter with variable AV block at 125 beats per minute. Critical Care Time Critical Care Time Critical Care Time: Yes Total Critical Care Time: 35 Attestation: The patient was critically ill with a high probability of imminent or life- threatening deterioration. ?I spent greater than 30 minutes of discontinuous time evaluating the patient, delivering critical care at the bedside, discussing evaluating data with consultants. ?Critical care time does not include time spent performing separately billable procedures or teaching. ?Time spent performing critical care with 35 minutes. Discharge Plan Discharge Clinical Impression: Atrial flutter, Alcohol use disorder, Alcohol intoxication Patient Disposition: Admitted As Inpatient
[2024-02-03] MEDS: Metoprolol Tartrate 5 MG in 0.9 % Sodium Chloride 50 ML 230 MG IV (07:48)
[2024-02-03 08:00] LABS: MANUAL DIFF FLAG NO
[2024-02-03 08:02] LABS: Basophils Absolute Auto 0.1 X10*3/uL (0.0-0.2); Basophils Percent Auto 0.8 % (0-2); Eosinophils Absolute Auto 0.2 X10*3/uL (0.0-0.4); Eosinophils Percent Auto 3.1 % (0-4); Hematocrit 39.2 % (37.0-47.0); Hemoglobin 13.4 g/dl (12.0-16.0); Imm Gran Abs Auto 0.07 X10*3/uL (0.00-0.03); Imm Gran Pct Auto 1.1 % (0.0-0.4); Lymphocytes Percent Auto 31.5 % (20-40); Mean Corpuscular HGB Conc 34.2 g/dl (31.0-35.0); Mean Corpuscular Hemoglobin 34.5 pg (27.0-33.0); Mean Platelet Volume 8.9 fL (9.4-12.3); Monocytes Absolute Auto 0.4 X10*3/uL (0.1-1.2); Monocytes Percent Auto 6.8 % (2-11); Neutrophils Absolute Auto 3.5 x10*3/uL (2.0-8.3); Neutrophils Percent Auto 56.7 % (45-73); Platelet Count 148 X10*3/uL (160-400); Red Blood Count 3.88 X10*6/uL (4.20-5.50); White Blood Count 6.2 X10*3/uL (4.8-10.8)
[2024-02-03 08:08] LABS: INTERNATIONAL NORM RATIO 0.9 (0.9-1.1); Prothrombin Time 11.5 SEC (11.1-13.3)
[2024-02-03] MEDS: Metoprolol Tartrate 50 MG TABLET PO (08:16)
[2024-02-03 08:18] LABS: Anion Gap 18 (12-20); Blood Urea Nitrogen 10 mg/dL (9-16); Calcium 9.1 mg/dL (8.4-10.2); Carbon Dioxide 25 mmol/L (22-29); Chloride 103 mmol/L (96-108); Creatinine Clr Calc Pharmacy 166.3; Estimated Glomerular Filt Rate > 60; Glucose Random 127 mg/dL (60-115); Potassium 3.3 mmol/L (3.3-5.1); Sodium 143 mmol/L (135-145)
[2024-02-03 08:26] LABS: Troponin-I High Sensitivity 6.6 ng/L (<3.5-17.0)
[2024-02-03 08:28] LABS: Alanine Aminotransferase 70 U/L (0-31); Albumin Level 3.5 g/dL (3.5-5.0); Alkaline Phosphatase 124 U/L (39-117); Aspartate Amino Transferase 97 U/L (5-31); Bilirubin Direct 0.3 mg/dL (0.0-0.5); Bilirubin Total 0.7 mg/dL (0.0-1.0); Ethanol 187 mg/dL; Magnesium 1.4 mg/dL (1.6-2.6); Total Protein 6.4 g/dL (6.5-8.0)
[2024-02-03 08:40] LABS: Thyroid Stimulating Hormone 4.21 uIU/mL (0.32-4.0)
[2024-02-03 09:03] LABS: B Type Natriuretic Peptide 220 pg/mL (<100)
[2024-02-03] MEDS: Metoprolol Tartrate 5 MG/5 ML VIAL IVPUSH (09:17)
[2024-02-03] MEDS: 0.9 % Sodium Chloride 1,000 ML 999 ML IV (09:19)
[2024-02-03] MEDS: Magnesium Sulfate/H2O 2 GM/50 ML PIGGYBACK IV (09:20)
--- NOTE | 2024-02-03 09:24 | PC.NURSE ---
following initial 5mg IV metoprolol dose pt had a drop in her SBP from 159 to 114 - pt HR maintains [id number] - per Dr Willa jacome to give second 5mg IVP Metoprolol with one liter IVF.
[2024-02-03] MEDS: dilTIAZem HCL 50 MG/10 ML VIAL 20 MG IVPUSH (11:05)
[2024-02-03 11:17] LABS: HCG Quantitative < 2 mIU/mL
--- NOTE | 2024-02-03 11:55 | PM.IMHP ---
History of Present Illness Date of Service: 02/03/24 Attending physician on admission: Prabhakar Gu Chief Complaint: Palpitations, AFib Pt is a 43-year-old female with a PMH significant for?hx of SVT and alcohol use disorder who presents to the ED for evaluation of?palpitations since last night. Pt has a history of SVT and has an Apple watch where she monitors her heart rate and rhythm. States approximately 1 month ago she was notified by her watch that she was likely in AFib. Was asymptomatic at that time, and arrhythmia lasted for only a short period of time. Was asymptomatic until last night at 20:00 when she noted she felt palpitations and ?a bit? of chest pressure. Reports it does not feel like heavy weight, but has mild, central, nonradiating and constant irritation since last night. Does not feel like heavy weight. When patient awoke this morning symptoms persisted and she thus decided to present to the ED for further evaluation. Denies fever, chills, nausea, vomiting. No lightheadedness or dizziness. No shortness of breath. Denies abdominal pain. Patient also notes she has a long history of heavy alcohol use for at least the past 10 years. Reports drinks 1+ L of vodka each night. Denies history of alcohol withdrawal, but notes her hands shake in the mornings. Denies auditory or visual hallucinations. Denies diaphoresis. No increased anxiety. In the ED pt was tachycardic up to 126, slightly hypertensive up to 159/99 vitals otherwise WNL. Labs were significant for magnesium 1.4, AST 97, ALT 70, and alk phos 124. No leukocytosis. Stable H&H. Renal function baseline. Initial troponin 6.6. EKG demonstrated AFib with RVR of 125 and variable AV block and possible ST depressions in inferior leads. Pt was treated with metoprolol 5 mg IV x2 doses, metoprolol 50 mg p.o., Mag sulfate, IVF, and diltiazem 20 mg IV. Pt will be admitted to the hospital for treatment and further evaluation of new onset AFib with RVR and imminent alcohol withdrawal. Review of Systems Review of Systems: Palpitations Mild chest pressure/irritation since last night Denies fever, chills, nausea, vomiting, abdominal pain No shortness of breath Denies diaphoresis No auditory or visual hallucinations No increased anxiety PMFSH Medical History SVT (supraventricular tachycardia) Social History Alcohol intake: current Alcohol intake frequency: 3 or more drinks per day Alcohol type: hard liquor Smoked in Last 30 Days: No Use of substances other than those prescribed or required for medical reasons: No Advance Directives: No Patient : No Meds Allergies Allergy/AdvReac Type Severity Reaction Status Date / Time No Known Allergies Allergy Verified 09/14/23 22:44 [No Known Allergies*] Home Medications Medication Instructions Recorded Confirmed Last Taken Type magnesium oxide 400 mg PO DAILY 02/03/24 02/03/24 Unknown History Physical Exam Vital Signs and Narrative: Vital Signs: Last Vital Signs Temp 98.7 F 02/03/24 07:07 Pulse 111 H 02/03/24 11:05 Resp 20 02/03/24 11:05 BP 123/73 02/03/24 11:05 Pulse Ox 93 02/03/24 11:05 O2 Del Method Room Air 02/03/24 11:05 BMI result Body Mass Index 54.3 Constitutional: Alert, in no acute distress. Mental Status: Oriented to person, place and time. Eyes: Pupils are equal, round, and reactive to light. Ear, Nose, and Throat: Oropharynx clear, mucous membranes moist. Ears and nose without deformities. Trachea midline. Respiratory: Clear to auscultation bilaterally. No wheezing, rales, or rhonchi. Cardiovascular: Irregularly irregular rhythm, tachy. Gastrointestinal: Abdomen soft, non-tender, non-distended, obese. Normal bowel sounds. Neurologic: Cranial nerves II-XII are grossly intact bilaterally. No focal neurological deficits. Moves all extremities spontaneously. Mild upper extremity tremors. Skin: Warm, dry. Musculoskeletal: No cyanosis or clubbing. Extremities: No pitting edema. Psychiatric: Normal mood and affect. Results Labs 02/03/24 07:42 02/03/24 07:42 Labs: Laboratory Results - last 24 hr 02/03/24 07:42 MCV 101.0 H MCH 34.5 H MCHC 34.2 RDW 14.0 Plt Count 148 L D MPV 8.9 L Immature Gran % (Auto) 1.1 H Neut % (Auto) 56.7 Lymph % (Auto) 31.5 [place] % (Auto) 6.8 Eos % (Auto) 3.1 Baso % (Auto) 0.8 Lymph # (Auto) 2.0 [place] # (Auto) 0.4 Eos # (Auto) 0.2 Baso # (Auto) 0.1 Abs Immat Gran (auto) 0.07 H Absolute Neuts (auto) 3.5 Absolute Nucleated RBC 0.000 Nucleated RBC % (auto) 0.0 PT 11.5 INR 0.9 Anion Gap 18 Estim Creat Clear Calc 166.3 Estimated GFR > 60 Random Glucose 127 H Calcium 9.1 D Magnesium 1.4 L* Total Bilirubin 0.7 Direct Bilirubin 0.3 AST 97 H ALT 70 H Alkaline Phosphatase 124 H Troponin I High Sens 6.6 D B-Natriuretic Peptide 220 H Total Protein 6.4 L Albumin 3.5 TSH 4.21 H Beta HCG, Quant < 2 Ethyl Alcohol 187 Assessment and Plan (1) Alcohol use disorder: Status: Acute (2) New onset a-fib: Status: Acute Plan Pt is a 43-year-old female with a PMH significant for?hx of SVT and alcohol use disorder who presents to the ED for evaluation of?palpitations since last night. Pt has a history of SVT and has an Apple watch where she monitors her heart rate and rhythm. Pt will be admitted to the hospital for treatment and further evaluation of new onset AFib with RVR and imminent alcohol withdrawal. New onset AFib with RVR Apple watch noted short episode of likely AFib one month ago, now noted AFib since last night at 20:00 Patient with previous history of SVT, has not followed up with cardiology since initial visit Given metoprolol 5 mg IV x2 doses, metoprolol 50 mg p.o., and diltiazem 20 mg IV in the ED With treatment metoprolol 25 mg p.o. q.6 Cardiology consult Monitor on telemetry Chest pressure, mild Possibly secondary to new onset AFib EKG with possible ST depressions in inferior leads Initial troponin 6.6 Will repeat troponin Monitor on telemetry Alcohol use disorder with likely imminent withdrawal Pt endorses drinking 1+ liters of vodka daily Reports hand tremors in mornings though denies hx of withdrawal Mild shakiness, no hallucinations Will start on phenobarb protocol Daily multivitamin, folic acid, thiamine, Famotidine Follow lytes, Mag, BNP Monitor on CIWA Addiction medicine consult Monitor on telemetry Elevated BNP Most likely secondary to AFib No history of CHF Will get chest x-ray Obesity stage III Weight loss encouraged Full Code Attending:?Dr. Gu DVT Prophylaxis: Lovenox Pt will require a hospitalization of at least two nights for treatment of?new onset AFib with RVR and alcohol withdrawal. Patient need hospitalization for administration medications for heart rate control, and also will need specialist consultation and close cardiac monitoring. Patient will also need hospitalization for phenobarb protocol to prevent acute alcohol withdrawal. Quality Stroke Does the patient have a stroke diagnosis?: No VTE Prior VTE?: No VTE Risk Level:: Medical - moderate - high VTE Device Contraindication: Treatment Not Indicated VTE Drug Contraindication: N/A - Med Ordered
--- NOTE | 2024-02-03 12:25 | PHA.MEDREC ---
Pharmacy Consult ? Medication Reconciliation Pharmacy has completed the medication reconciliation. Spoke to patient and confirmed medication list.
--- NOTE | 2024-02-03 12:32 | PM.CNCAR ---
History of Present Illness History of Present Illness Date of Service: 02/03/24 Requesting physician: Spenser Rod Chief complaint: Atrial flutter, alcoholism Narrative: 43-year-old female who is presenting with palpitations. She has an [employer] watch and has noticed atrial fibrillation on the [employer] watch along with tachycardia. She said this has been ongoing for few weeks. She noted her heart rate is to be worse today and he with ambulation heart rate was worse today. She said she previously had SVT but this felt different than that. She has been drinking heavily for long time and drinks vodka. Her last drink was this morning. In the ER her EKG has shown atrial flutter and she received Cardizem and metoprolol IV boluses with improvement in heart rate to some extent. No significant discomfort or pain in the chest. [facility] Past Medical History Medical History SVT (supraventricular tachycardia) Social History Social History Alcohol intake: current Alcohol intake frequency: 3 or more drinks per day Alcohol type: hard liquor Patient Tobacco Use Status: Former Tobacco user Meds Allergies Allergy/AdvReac Type Severity Reaction Status Date / Time No Known Allergies Allergy Verified 09/14/23 22:44 [No Known Allergies*] Home Medications Medication Instructions Recorded Confirmed Last Taken Type magnesium oxide 400 mg PO DAILY 02/03/24 02/03/24 Unknown History Physical Exam Vital Signs: Vital Signs: Last Vital Signs Temp 98.7 F 02/03/24 07:07 Pulse 109 H 02/03/24 12:21 Resp 21 H 02/03/24 12:21 BP 113/60 02/03/24 12:21 Pulse Ox 93 02/03/24 12:21 O2 Del Method Room Air 02/03/24 12:21 BMI result Body Mass Index 54.3 GENERAL APPEARANCE: in no acute distress. NECK: no carotid bruit, no jugular venous distention. SKIN: Rosacea on face. HEART: no murmurs, regular rate and rhythm. LUNGS: clear to auscultation bilaterally. ABDOMEN: soft, nontender. EXTREMITIES: no edema. PERIPHERAL PULSES: equal. NEUROLOGIC: No gross deficits, AAO X 3 Objective Labs and Meds 02/03/24 07:42 02/03/24 07:42 Lab results: Laboratory Results - last 24 hr 02/03/24 07:42 WBC 6.2 RBC 3.88 L Hgb 13.4 Hct 39.2 MCV 101.0 H MCH 34.5 H MCHC 34.2 RDW 14.0 Plt Count 148 L D MPV 8.9 L Immature Gran % (Auto) 1.1 H Neut % (Auto) 56.7 Lymph % (Auto) 31.5 [place] % (Auto) 6.8 Eos % (Auto) 3.1 Baso % (Auto) 0.8 Lymph # (Auto) 2.0 [place] # (Auto) 0.4 Eos # (Auto) 0.2 Baso # (Auto) 0.1 Abs Immat Gran (auto) 0.07 H Absolute Neuts (auto) 3.5 Absolute Nucleated RBC 0.000 Nucleated RBC % (auto) 0.0 PT 11.5 INR 0.9 Sodium 143 Potassium 3.3 Chloride 103 Carbon Dioxide 25 Anion Gap 18 BUN 10 Creatinine 0.65 Estim Creat Clear Calc 166.3 Estimated GFR > 60 Random Glucose 127 H Calcium 9.1 D Magnesium 1.4 L* Total Bilirubin 0.7 Direct Bilirubin 0.3 AST 97 H ALT 70 H Alkaline Phosphatase 124 H Troponin I High Sens 6.6 D B-Natriuretic Peptide 220 H Total Protein 6.4 L Albumin 3.5 TSH 4.21 H Beta HCG, Quant < 2 Ethyl Alcohol 187 Assessment and Plan (1) Atrial flutter: Status: Acute (2) Alcohol use disorder: Status: Acute Plan 43-year-old female who is presenting for tachycardia. She has been noticed to have atrial flutter on EKG. Previously she had SVT. She has been given Cardizem and metoprolol boluses and currently heart rate is little better controlled. Traditionally, atrial flutter is quite difficult to control. I have explained to Ginny that alcohol use is the trigger for her arrhythmia. She plans to quit and I have advised her to be admitted because as she goes through withdrawal her heart rate will be quite difficult to control and she may not be able to manage this at home. Increase metoprolol tartrate to 50 mg 3 times a day. Monitor blood pressure closely. [facility] protocol. Monitor potassium and magnesium closely. If any concerns, please page. Thank you for allowing me to participate in the care of your patient. Please feel free to contact me if you have any questions. Procedures Date of Service Date of Service: 02/03/24
[2024-02-03 13:44] LABS: Troponin-I High Sensitivity 9.2 ng/L (<3.5-17.0)
[2024-02-03] MEDS: Metoprolol Tartrate 25 MG TABLET PO ×3 (13:51→20:05)
[2024-02-03] MEDS: Thiamine HCL 100 MG TABLET PO (13:51)
[2024-02-03] MEDS: Folic Acid 1 MG TABLET PO (13:51)
[2024-02-03] MEDS: Famotidine 20 MG TABLET PO ×2 (13:51→20:05)
[2024-02-03] MEDS: Enoxaparin Sodium 40 MG/0.4 ML SYRINGE SUBCUT (13:52)
[2024-02-03] MEDS: PHENobarbitaL sodium 130 MG/ML IM ONCE 180 MG IM (13:52)
[2024-02-03] MEDS: 0.9 % Sodium Chloride Flush 3 ML SYRINGE IVFLUSH ×2 (16:17→20:05)
[2024-02-03] MEDS: PHENobarbitaL sodium 65 MG/ML VIAL 136.5 MG IM ×2 (17:38→20:06)
--- NOTE | 2024-02-03 18:08 | PC.NURSE ---
pt resting comfortably in bed, NAD, skin PWD. got up and ambulated to the BR independently. pt awaiting bed assignment on inpatient floor. pt aware of plan.
[2024-02-04] VITALS: BP 157/88; PULSE 84; RESP 20; TEMP 36.6; O2SAT 96
[2024-02-04 03:12] VITALS: BP 132/73; PULSE 84; RESP 20; TEMP 36.1; O2SAT 97
[2024-02-04 06:32] LABS: Hematocrit 35.1 % (37.0-47.0); Hemoglobin 12.1 g/dl (12.0-16.0); Mean Corpuscular HGB Conc 34.5 g/dl (31.0-35.0); Mean Corpuscular Hemoglobin 34.7 pg (27.0-33.0); Mean Corpuscular Volume 100.6 fL (80.0-98.0); Mean Platelet Volume 9.2 fL (9.4-12.3); Platelet Count 108 X10*3/uL (160-400); Red Blood Count 3.49 X10*6/uL (4.20-5.50); Red Cell Distribution Width 13.8 % (11.0-16.0); White Blood Count 5.3 X10*3/uL (4.8-10.8)
[2024-02-04 06:51] LABS: Anion Gap 13 (12-20); Blood Urea Nitrogen 9 mg/dL (9-16); Calcium 8.7 mg/dL (8.4-10.2); Carbon Dioxide 31 mmol/L (22-29); Chloride 100 mmol/L (96-108); Creatinine Clr Calc Pharmacy 168.9; Estimated Glomerular Filt Rate > 60; Glucose Random 97 mg/dL (60-115); Magnesium 1.6 mg/dL (1.6-2.6); Potassium 4.2 mmol/L (3.3-5.1); Sodium 140 mmol/L (135-145)
[2024-02-04 07:39] VITALS: BP 141/77; PULSE 87; RESP 20; TEMP 36.7; O2SAT 98
[2024-02-04] MEDS: PHENobarbitaL 15 MG TABLET 45 MG PO (07:49)
[2024-02-04] MEDS: Thiamine HCL 100 MG TABLET PO (07:49)
[2024-02-04] MEDS: 0.9 % Sodium Chloride Flush 3 ML SYRINGE IVFLUSH ×2 (07:49→15:50)
[2024-02-04] MEDS: Metoprolol Tartrate 25 MG TABLET PO (07:49)
[2024-02-04] MEDS: Folic Acid 1 MG TABLET PO (07:49)
[2024-02-04] MEDS: Famotidine 20 MG TABLET PO (07:49)
--- NOTE | 2024-02-04 09:55 | MHC.CM.PN ---
Pt self-care, lives at home with partner who will transport. HCP completed with pt, now on file. PCP: Gissell KENT
--- NOTE | 2024-02-04 10:05 | PM.PNCARD ---
Subjective Subjective Date of Service: 02/04/24 Interval history: Seen examined at bedside. She has reverted back to sinus rhythm at this stage. Physical Exam Vital Signs: Last Vital Signs Temp 98.0 F 02/04/24 07:39 Pulse 87 02/04/24 07:39 Resp 20 02/04/24 07:39 BP 141/77 H 02/04/24 07:39 Pulse Ox 98 02/04/24 07:39 O2 Del Method Room Air 02/04/24 07:39 BMI result Body Mass Index 54.3 GENERAL APPEARANCE: in no acute distress. NECK: no carotid bruit, no jugular venous distention. SKIN: Rosacea on face. HEART: no murmurs, regular rate and rhythm. LUNGS: clear to auscultation bilaterally. ABDOMEN: soft, nontender. EXTREMITIES: no edema. PERIPHERAL PULSES: equal. NEUROLOGIC: No gross deficits, AAO X 3 Objective Labs and Meds 02/04/24 05:58 02/04/24 05:58 Lab results: Laboratory Results - last 24 hr 02/03/24 02/03/24 02/04/24 07:42 13:10 05:58 WBC 5.3 RBC 3.49 L Hgb 12.1 Hct 35.1 L MCV 100.6 H MCH 34.7 H MCHC 34.5 RDW 13.8 Plt Count 108 L D MPV 9.2 L Absolute Nucleated RBC 0.000 Nucleated RBC % (auto) 0.0 Hold Purple Top SEE NOTE Sodium 140 Potassium 4.2 D Chloride 100 Carbon Dioxide 31 H Anion Gap 13 BUN 9 Creatinine 0.64 Estim Creat Clear Calc 168.9 Estimated GFR > 60 Random Glucose 97 Calcium 8.7 Magnesium 1.6 Troponin I High Sens 9.2 Beta HCG, Quant < 2 Imaging Radiologist's impression: Impressions Chest X-Ray 02/03/24 13:15 IMPRESSION: No acute cardiopulmonary disease. Stable, mild cardiomegaly. The left hemithorax is unchanged in appearance and is secondary to an enlarged epicardial fat pad. Progress Note: A&P Assessment and plan (1) Atrial flutter: Status: Acute (2) Alcohol use disorder: Status: Acute Plan Pleasant 43-year-old female with alcoholism and atrial flutter. She has reverted to sinus rhythm at this stage. Does not require anticoagulation. Monitor electrolytes and keep magnesium close to 2 and potassium more than 4. Can be changed to home dose of metoprolol. Monitor on [facility] protocol for alcohol withdrawal. Thank you for allowing me to participate in the care of your patient. Please feel free to contact me if you have any questions. Time Spent With Patient Time: Total time managing care of this patient today ____ minutes. Progress Note: Quality Stroke Does the patient have a stroke diagnosis?: No Procedures Date of Service Date of Service: 02/04/24
[2024-02-04 11:36] VITALS: BP 140/82; PULSE 87; RESP 20; TEMP 37.2; O2SAT 96
--- NOTE | 2024-02-04 12:14 | HO.ADDICTCON ---
History of Present Illness Date of Service: 02/04/2024 Chief Complaint: Atrial flutter, alcoholism Reason for Consult: alcohol use disorder Sources of Information: patient interviewed and chart reviewed HPI Narrative: Patient is a 43 year old female currently medically admitted with afib and alcohol withdrawal. Seen in room 467, awake, alert pleasant and engaged in interview. She reports she has been drinking since the age of 13. Denies any history of treatment --no medications, ATS admissions, support, etc. She reports that recently she self tapered her alcohol use over time and was able to stop entirely for approx 1-2 months. She then had a significant life event (her job of 21 years closed) and she began to drink again. Currently drinking a bottle of vodka daily, starting at 6 pm. Denies any other substance use, Family history of AUD Lives with her BF of 13 years who she identifies as very supportive and is concerned about her drinking and overall health. Reports historical diagnosis of ADHD and depression. Denies any history of treatment. Alcohol became very effective at managing those sx. 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 Patient aware of medical and social implications of ongoing alcohol use Reporting her goal is to abstain completely. Review of Systems Constitutional: Reports as per HPI Diagnostics Vital Signs (24Hr): Vital Signs - 24 hr 02/03/24 12:21 02/03/24 13:48 02/03/24 19:29 Temperature 98.1 F Pulse Rate 109 H 111 H 83 Respiratory Rate 21 H 14 16 Blood Pressure 113/60 144/107 H 152/82 H Pulse Oximetry 93 97 95 Oxygen Delivery Method Room Air Room Air 02/04/24 00:00 02/04/24 03:12 02/04/24 07:39 Temperature 97.8 F 96.9 F 98.0 F Pulse Rate 84 84 87 Respiratory Rate 20 20 20 Blood Pressure 157/88 H 132/73 141/77 H Pulse Oximetry 96 97 98 Oxygen Delivery Method Room Air Room Air Room Air 02/04/24 11:36 Temperature 98.9 F Pulse Rate 87 Respiratory Rate 20 Blood Pressure 140/82 H Pulse Oximetry 96 Oxygen Delivery Method Room Air BMI result Body Mass Index 54.3 Labs 02/04/24 05:58 02/04/24 05:58 Labs: Laboratory Results - last 48 hr 02/03/24 02/03/24 02/04/24 07:42 13:10 05:58 WBC 6.2 5.3 RBC 3.88 L 3.49 L Hgb 13.4 12.1 Hct 39.2 35.1 L MCV 101.0 H 100.6 H MCH 34.5 H 34.7 H MCHC 34.2 34.5 RDW 14.0 13.8 Plt Count 148 L D 108 L D MPV 8.9 L 9.2 L Immature Gran % (Auto) 1.1 H Neut % (Auto) 56.7 Lymph % (Auto) 31.5 [place] % (Auto) 6.8 Eos % (Auto) 3.1 Baso % (Auto) 0.8 Lymph # (Auto) 2.0 [place] # (Auto) 0.4 Eos # (Auto) 0.2 Baso # (Auto) 0.1 Abs Immat Gran (auto) 0.07 H Absolute Neuts (auto) 3.5 Absolute Nucleated RBC 0.000 0.000 Nucleated RBC % (auto) 0.0 0.0 Hold Purple Top SEE NOTE PT 11.5 INR 0.9 Sodium 143 140 Potassium 3.3 4.2 D Chloride 103 100 Carbon Dioxide 25 31 H Anion Gap 18 13 BUN 10 9 Creatinine 0.65 0.64 Estim Creat Clear Calc 166.3 168.9 Estimated GFR > 60 > 60 Random Glucose 127 H 97 Calcium 9.1 D 8.7 Magnesium 1.4 L* 1.6 Total Bilirubin 0.7 Direct Bilirubin 0.3 AST 97 H ALT 70 H Alkaline Phosphatase 124 H Troponin I High Sens 6.6 D 9.2 B-Natriuretic Peptide 220 H Total Protein 6.4 L Albumin 3.5 TSH 4.21 H Beta HCG, Quant < 2 Ethyl Alcohol 187 Imaging Radiology Impressions: ITS Impressions Chest X-Ray 02/03/24 13:15 IMPRESSION: No acute cardiopulmonary disease. Stable, mild cardiomegaly. The left hemithorax is unchanged in appearance and is secondary to an enlarged epicardial fat pad. Mental Status Exam Mental Status Exam Patient Appearance: Appropriate Level of Consciousness: Awake, Appropriate and Alert Patient Behavior: Appropriate and Talkative Mood Description: Calm Affect Description: Calm and Sad Speech Pattern: Clear Hallucinations: None Medications Medications Current Medications Acetaminophen (Acetaminophen 325 Mg Tablet) 650 mg PO Q6H PRN PRN Reason: Pain, Mild (Pain Scale 1-3) Benzonatate (Benzonatate 100 Mg Capsule) 100 mg PO TID PRN PRN Reason: Cough Docusate Sodium (Docusate Sodium 100 Mg Capsule) 100 mg PO DAILY PRN PRN Reason: Constipation Enoxaparin Sodium (Enoxaparin Sodium 40 Mg/0.4 Ml Syringe) 40 mg SUBCUT Q24H [facility] Last Admin: 02/03/24 13:52 Dose: 40 mg Famotidine (Famotidine 20 Mg Tablet) 20 mg PO BID [facility] Last Admin: 02/04/24 07:49 Dose: 20 mg Folic Acid (Folic Acid 1 Mg Tablet) 1 mg PO DAILY [facility] Stop: 02/06/24 12:34 Last Admin: 02/04/24 07:49 Dose: 1 mg Magnesium Oxide (Magnesium Oxide 400 Mg Tablet) 400 mg PO DAILY [facility] Melatonin (Melatonin 3 Mg Tablet) 6 mg PO BEDTIME PRN PRN Reason: Insomnia Metoprolol Tartrate (Metoprolol Tartrate 50 Mg Tablet) 50 mg PO BID [facility]; Protocol Ondansetron HCl (Ondansetron Hcl 4 Mg/2 Ml Vial) 4 mg IVPUSH Q8H PRN PRN Reason: Nausea and Vomiting Pharmacy Consult (Consult Rx Etoh Phenob Im/Po) 1 each MISCELLANE ONCE PRN; Protocol PRN Reason: Consult order Phenobarbital (Phenobarbital 15 Mg Tablet) 45 mg PO BID [facility]; Protocol Stop: 02/05/24 21:01 Last Admin: 02/04/24 07:49 Dose: 45 mg Phenobarbital (Phenobarbital 15 Mg Tablet) 15 mg PO BID [facility]; Protocol Stop: 02/07/24 21:01 Phenobarbital (Phenobarbital 15 Mg Tablet) 15 mg PO DAILY [facility]; Protocol Stop: 02/09/24 09:01 Sodium Chloride (0.9 % Sodium Chloride Flush 3 Ml Syringe) 3 ml IVFLUSH QSHIFT [facility] Last Admin: 02/04/24 07:49 Dose: 3 ml Thiamine HCl (Thiamine Hcl 100 Mg Tablet) 100 mg PO DAILY [facility] Stop: 02/06/24 12:34 Last Admin: 02/04/24 07:49 Dose: 100 mg Allergies Allergies Allergy/AdvReac Type Severity Reaction Status Date / Time No Known Allergies Allergy Verified 09/14/23 22:44 [No Known Allergies*] Assessment & Plan Assessment & Plan (1) Alcohol use disorder, severe, dependence: Status: Acute Code(s): F10.20 - Alcohol dependence, uncomplicated Assessment and Plan: discussed different treatment options for AUD, including medications. Provided written resources to support discussion discussed ongoing support to maintain abstinence patient unsure at this time--cloth layer to follow up over the wkend Total time managing care of this patient today __45__ minutes. PMFSH Past Medical History Medical History SVT (supraventricular tachycardia) Social History Social History Household Members: Significant Other Housing: House Do you presently have visiting nurse or other home services: No Alcohol intake: current Alcohol intake frequency: 3 or more drinks per day Alcohol type: hard liquor Comment: Refusing bed alarm Patient Tobacco Use Status: Former Tobacco user service: No
[2024-02-04] MEDS: Enoxaparin Sodium 40 MG/0.4 ML SYRINGE SUBCUT (12:20)
[2024-02-04 15:39] VITALS: BP 162/78; PULSE 84; RESP 18; TEMP 37.2; O2SAT 99
--- NOTE | 2024-02-04 18:26 | P.DS_ITS ---
DS: Providers Provider Date of Service: 02/04/24 Date of admission: 02/03/24 12:32 Date of discharge: 02/04/24 Primary care physician: DONTE Lagos Consults: 02/03/24 12:39 Consult to Cardiology Routine Consulting Provider: [facility] Cardi[facility] Services Reason for consultation: New onset AFib with RVR 02/03/24 13:07 Addiction Medicine Routine Consulting Provider: Addiction Covering Reason for consultation: Alcohol use disorder Attending physician on discharge: Kishan Berry Discharging clinician: Kishan Berry DS: Diagnosis Discharge Diagnosis (1) Alcohol use disorder, severe, dependence: Status: Acute (2) New onset a-fib: Status: Acute DS: Summary Hospital Course Hospital Course: 43-year-old female with a PMH significant for?hx of SVT and alcohol use disorder who presents to the ED for evaluation of?palpitations since last night. Pt has a history of SVT and has an [employer] watch where she monitors her heart rate and rhythm. States approximately 1 month ago she was notified by her watch that she was likely in AFib. Was asymptomatic at that time, and arrhythmia lasted for only a short period of time. Was asymptomatic until last night at 20:00 when she noted she felt palpitations and ?a bit? of chest pressure. Reports it does not feel like heavy weight, but has mild, central, nonradiating and constant irritation since last night. Does not feel like heavy weight. When patient awoke this morning symptoms persisted and she thus decided to present to the ED for further evaluation. Denies fever, chills, nausea, vomiting. No lightheadedness or dizziness. No shortness of breath. Denies abdominal pain. Patient also notes she has a long history of heavy alcohol use for at least the past 10 years. Reports drinks 1+ L of vodka each night. Denies history of alcohol withdrawal, but notes her hands shake in the mornings. Denies auditory or visual hallucinations. Denies diaphoresis. No increased anxiety. In the ED pt was tachycardic up to 126, slightly hypertensive up to 159/99 vitals otherwise WNL. Labs were significant for magnesium 1.4, AST 97, ALT 70, and alk phos 124. No leukocytosis. Stable H&H. Renal function baseline. Initial troponin 6.6. EKG demonstrated AFib with RVR of 125 and variable AV block and possible ST depressions in inferior leads. Pt was treated with metoprolol 5 mg IV x2 doses, metoprolol 50 mg p.o., Mag sulfate, IVF, and diltiazem 20 mg IV. Pt will be admitted to the hospital for treatment and further evaluation of new onset AFib with RVR and imminent alcohol withdrawal. Hospital course: Patient was admitted to the hospital: For new onset a flutter, also in alcohol withdrawal: Troponin flat, Patient received IV metoprolol and diltiazem: Patient had rate seems to be improved significantly, patient was started back on home metoprolol dosing, patient currently normal sinus rhythm, seen by Cardiology recommended to continue home metoprolol dose, currently does not qualify for anticoagulation. in addition patient was treated for alcohol withdrawal with phenobarb protocol. Patient seems to be improved significantly, CIWA scale last 0, patient was strongly advised to abstain from alcohol, she said she is going to quit it. Above management discussed with patient in detail length she understand and in agreement with the above plan, time spent 50 minute. Time Attestation Total time managing care of this patient today: 50 mintues. Discharge Coordination Time (in mins): 50 minute Quality: Safe Use of Opioids Does Pt have an Active Cancer Diagnosis on the Problem List?: No Quality: Stroke Does the patient have a stroke diagnosis?: No Physical Exam Vital Signs: Vital Signs: Last Vital Signs Temp 99.0 F 02/04/24 15:39 Pulse 84 02/04/24 15:39 Resp 18 02/04/24 15:39 BP 162/78 H 02/04/24 15:39 Pulse Ox 99 02/04/24 15:39 O2 Del Method Room Air 02/04/24 15:39 BMI result Body Mass Index 54.3 Appearance: Alert.? Oriented X3.? not in distress.? cvs: rrr, [id number] , no murmur res: clear to auscultation ,no rhonchii or wheezing abd: no rebound or guarding ,nt, bs present. ext pulses present , no cyanosis . neuro: axo3 , nonfocal. DS: Data Data Completed and Pending Labs on day of discharge: Laboratory Results - last 24 hr 02/04/24 05:58 WBC 5.3 RBC 3.49 L Hgb 12.1 Hct 35.1 L MCV 100.6 H MCH 34.7 H MCHC 34.5 RDW 13.8 Plt Count 108 L D MPV 9.2 L Absolute Nucleated RBC 0.000 Nucleated RBC % (auto) 0.0 Sodium 140 Potassium 4.2 D Chloride 100 Carbon Dioxide 31 H Anion Gap 13 BUN 9 Creatinine 0.64 Estim Creat Clear Calc 168.9 Estimated GFR > 60 Random Glucose 97 Calcium 8.7 Magnesium 1.6 Imaging Chest x-ray: Radiologist's impression: ITS Impressions Chest X-Ray 02/03/24 13:15 IMPRESSION: No acute cardiopulmonary disease. Stable, mild cardiomegaly. The left hemithorax is unchanged in appearance and is secondary to an enlarged epicardial fat pad. Discharge Plan Discharge Anticipated Discharge Date/Time: 02/04/24 18:18 Patient Disposition: Home, Self-Care Discharge Diagnosis: aflutter, alcohol withdrawal Referrals: Gissell Truong PA [Primary Care Provider] - 1 Week Discharge Medications: Continued metoprolol tartrate [Lopressor] 50 mg tablet 50 mg PO BID Qty: 60 1RF magnesium oxide 400 mg magnesium Tablet 400 mg PO DAILY Discharge Orders: Discharge Order (Routine); Ordered 02/04/24 Ordered By: Kishan Berry Diet: Advance to usual diet Activity on Discharge: As tolerated Stand Alone Forms: Patient Portal Discharge page Care Plan Goals: Patient was admitted to the hospital: For new onset a flutter, also in alcohol withdrawal: Troponin flat, Patient received IV metoprolol and diltiazem: Patient had rate seems to be improved significantly, patient was started back on home metoprolol dosing, patient currently normal sinus rhythm, seen by Cardiology recommended to continue home metoprolol dose. in addition patient was treated for alcohol withdrawal with phenobarb protocol. Patient seems to be improved significantly, CIWA scale last 0, patient was strongly advised to abstain from alcohol, she said she is going to quit it. Health Concerns: As above. Plan of Treatment: As above. Assessment: As above.
== END 2024-02-04 18:51 | disposition home or self-care (01) | DRG 201 ==
LOC: HO.ED 12:33 → HO.EDOVER 12:43 → HO.IMC 18:08
PROVIDERS: Admitting Provider Student in an Organized Health Care Education/Training Program; Emergency Provider Emergency Medicine; PCP Physician Assistant; Visit Provider Internal Medicine
DX: I48.91 Unspecified atrial fibrillation (principal); Z68.43 Body mass index [BMI] 50.0-59.9, adult; I48.92 Unspecified atrial flutter; E66.01 Morbid (severe) obesity due to excess calories; F10.229 Alcohol dependence with intoxication, unspecified; F10.239 Alcohol dependence with withdrawal, unspecified; Y90.6 Blood alcohol level of 120-199 mg/100 ml; Z87.891 Personal history of nicotine dependence; Z79.899 Other long term (current) drug therapy
CPT/HCPCS: 36415; 71045; 80048; 80076; 80307; 83735; 83880; 84443; 84484; 84702; 85025; 85027; 85610; 93005; 99285; J1650; J2560; J3475

== ENCOUNTER → 2024-02-03 12:32 | Outpatient (BNV) | payer OTHER, SELFPAY | PROVIDERS: Admitting Provider Student in an Organized Health Care Education/Training Program; Emergency Provider Emergency Medicine; PCP Physician Assistant; Visit Provider Internal Medicine Cardiovascular Disease | DX: I48.92 Unspecified atrial flutter (principal); F10.90 Alcohol use, unspecified, uncomplicated | CPT/HCPCS: 93010; 99223; 99232 ==

== ENCOUNTER → 2024-02-03 12:32 | Outpatient (BNV) | payer OTHER, SELFPAY | PROVIDERS: Admitting Provider Student in an Organized Health Care Education/Training Program; Emergency Provider Emergency Medicine; PCP Physician Assistant; Visit Provider Nurse Practitioner Psychiatric/Mental Health | DX: F10.20 Alcohol dependence, uncomplicated (principal) | CPT/HCPCS: 99222; 99232 ==

== ENCOUNTER → 2024-02-03 12:32 | Outpatient (BNV) | payer OTHER, SELFPAY | PROVIDERS: Admitting Provider Student in an Organized Health Care Education/Training Program; Emergency Provider Emergency Medicine; PCP Physician Assistant; Visit Provider Student in an Organized Health Care Education/Training Program | DX: F10.939 Alcohol use, unspecified with withdrawal, unspecified (principal); I48.91 Unspecified atrial fibrillation | CPT/HCPCS: 99223; 99239 ==